=== PATIENT | female | born 1940 | race Caucasian/White ===

== ENCOUNTER 2018-12-14 15:50 | Inpatient (IN) | payer MEDICARE, MEDICAID ==
[~2018-12-14] VITALS: Ht 154.9 cm; Wt 44.1 kg
[2018-12-14] MEDS ORDERED: morphine 4 MG/ML inj SYRINge IV ONE (16:15)
[2018-12-14] MEDS ORDERED: ondansetron/PF 4mg/2ml inj IV ONE (16:15)
[2018-12-14 16:54] LABS: BASOPHILS # (AUTO) 0.1 X10'3 (0-0.2); BASOPHILS % (AUTO) 0.7 % (0-1); EOSINOPHILS # (AUTO) 0.1 X10'3 (0-0.9); EOSINOPHILS % (AUTO) 1.3 % (0-6); HEMATOCRIT 33.4 % (35.0-45.0); HEMOGLOBIN 11.4 g/dl (12.0-16.0); LYMPHOCYTES # (AUTO) 2.3 X10'3 (1.1-4.8); LYMPHOCYTES % (AUTO) 29.2 % (21-51); MEAN CORPUSCULAR HGB CONC 34.2 g/dL (33.0-36.5); MEAN CORPUSCULAR VOLUME 90.6 FL (78-98); MEAN PLATELET VOLUME 7.3 FL (7.4-10.4); MONOCYTES % (AUTO) 13.2 % (2-12); NEUTROPHILS # (AUTO) 4.3 X10'3 (1.8-7.7); NEUTROPHILS % (AUTO) 55.6 % (42-75); PLATELET COUNT 242 X10'3 (140-440); RED BLOOD COUNT 3.69 X10'6 (4.20-5.60); RED CELL DISTRIBUTION WIDTH 13.4 % (11.5-14.5); WHITE BLOOD COUNT 7.8 X10'3 (4.5-11.0)
--- NOTE | 2018-12-14 17:00 | NUR ---
SPOLE TO PA REGARDING OBTAINING URINE
[2018-12-14 17:01] LABS: ALANINE AMINOTRANSFERASE 13 U/L (12-78); ALBUMIN/GLOBULIN RATIO 0.7 (1.1-1.5); ALKALINE PHOSPHATASE 51 IU/L (46-116); ANION GAP 8 (8-16); ASPARTATE AMINO TRANSFERASE 14 U/L (10-37); BILIRUBIN,TOTAL 0.3 MG/DL (0.1-1.0); BLOOD UREA NITROGEN 8 MG/DL (7-18); BUN/CREATININE RATIO 15.4 (6.6-38.0); CALCIUM 8.3 MG/DL (8.5-10.1); CHLORIDE 92 MMOL/L (99-107); CREATININE 0.52 MG/DL (0.40-0.90); GLUCOSE 113 MG/DL (70-104); POTASSIUM 4.1 MMOL/L (3.5-5.1); SODIUM 126 MMOL/L (135-145); TOTAL CARBON DIOXIDE 25.8 MMOL/L (24-32); TOTAL PROTEIN 7.4 G/DL (6.4-8.2); eGFR > 90 ML/MIN
--- NOTE | 2018-12-14 17:18 | NUR ---
to ct scan
[2018-12-14 17:27] LABS: CLARITY,URINE CLEAR (Clear); COLOR,URINE YELLOW (Yellow); GLUCOSE, URINE NEGATIVE (Neg); KETONES,URINE NEGATIVE (Neg); LEUKOCYTE ESTERASE ,URINE NEGATIVE (Neg); NITRITES, URINE NEGATIVE (Neg); OCCULT BLOOD,URINE NEGATIVE (Neg); PROTEIN,URINE NEGATIVE (Neg); UROBILINOGEN,URINE 0.2 E.U/dL (0.2-1.0)
[2018-12-14] MEDS ORDERED: normal saline 1000ML IV soln IVB ONE (17:35)
[2018-12-14 17:43] LABS: UA COLLECTION TYPE STRAIGHT CATH
--- NOTE | 2018-12-14 18:11 | NUR ---
CAREGIVER RONALD MCCAULEY LEFT [phone] CAREGIVER NORA [phone] TO BE CALLED UPON DISCHARGE
--- NOTE | 2018-12-14 18:35 | NUR ---
PATIENT WAS PLACED ON OXYGEN BY RUDY WILSON DUE TO WOB PRIOR TO MORPHINE ADMINISTRATION. NOW, PATIENT RR APPEARS EVEN AND UNLABORED AND PATIENT APPEARS MORE COMFORTABLE, BUT PATIENT STATES THAT HER PAIN IS STILL SEVERE
[2018-12-14] MEDS ORDERED: potassium CL 10mEq/100ml bag 100 ML IV PRN ×2 (20:45)
[2018-12-14] MEDS ORDERED: magnesium 2GM in 50ml NS 50 ML IV PRN (20:45)
[2018-12-14] MEDS ORDERED: magnesium 4gm in 100ml NS 100 ML IV PRN (20:45)
[2018-12-14] MEDS ORDERED: acetaminophen 325mg tablet PO PRN (20:45)
[2018-12-14] MEDS ORDERED: potassium Cl 20 mEq SR tablet PO PRN ×2 (20:45)
[2018-12-14] MEDS ORDERED: magnesium Cl slow-release 64mg tablet PO PRN (20:45)
--- NOTE | 2018-12-14 21:19 | NUR ---
MASSIEL MADDEN CALLED PER MYLES RN: [facility] [phone]
[2018-12-14] MEDS: normal saline 1000ml 1,000 ML IV SCH (21:21)
[2018-12-14] MEDS ORDERED: NIFE30TA95 PO (21:26)
[2018-12-14] MEDS ORDERED: METO-395 PO (21:27)
[2018-12-14] MEDS ORDERED: LISI10TA4 PO (21:27)
[2018-12-14] MEDS ORDERED: ARIP2TAB20 PO (21:28)
[2018-12-14] MEDS ORDERED: DIVA-74 PO (21:28)
--- NOTE | 2018-12-14 21:28 | NUR ---
ATEMPTED TO GIVE REPORT, SBAR NOT DONE VANNESA TAN WORKING ON MED REC
[2018-12-14] MEDS ORDERED: REM30T PO (21:29)
[2018-12-14] MEDS ORDERED: DULO60CA65 PO (21:30)
[2018-12-14 21:45] VITALS: BP 152/80
[2018-12-14] MEDS: morphine 2 MG/ML inj. syringe IV PRN (21:49)
[2018-12-14] MEDS ORDERED: PIL2OS LEFTEYE (22:09)
[2018-12-14] MEDS ORDERED: LORA10TA7 PO (22:09)
[2018-12-14] MEDS ORDERED: XAL0.005OS LEFTEYE (22:09)
[2018-12-14] MEDS ORDERED: ALEN70TA60 PO (22:09)
[2018-12-14] MEDS ORDERED: DOCU100C33 PO (22:09)
[2018-12-14] MEDS ORDERED: LORA0.5T PO (22:09)
[2018-12-15] MEDS: CefTRIAXone/D5W-Rocephin 1gm 50 ML IV SCH ×2 (00:46→23:02)
[2018-12-15] MEDS: ipratropium/albuterol 3ml nebule NEB SCH ×6 (03:08→23:10)
[2018-12-15] MEDS ORDERED: non-formulary drug (Alendronate Sodium* (Fosamax*) 1 TABLET) PO SCH (05:45)
[2018-12-15 06:00] VITALS: BP 212/106
--- NOTE | 2018-12-15 06:18 | NUR ---
Patient in room ORTHO 4009. I have received report from and had the opportunity to ask questions BRITNEY Judd.
[2018-12-15 06:41] LABS: BASOPHILS % (AUTO) 0.4 % (0-1); EOSINOPHILS # (AUTO) 0.1 X10'3 (0-0.9); EOSINOPHILS % (AUTO) 1.7 % (0-6); HEMATOCRIT 34.1 % (35.0-45.0); HEMOGLOBIN 11.6 g/dl (12.0-16.0); LYMPHOCYTES # (AUTO) 1.6 X10'3 (1.1-4.8); LYMPHOCYTES % (AUTO) 22.7 % (21-51); MEAN CORPUSCULAR HEMOGLOBIN 31.6 PG (27.0-31.0); MEAN CORPUSCULAR VOLUME 92.9 FL (78-98); MEAN PLATELET VOLUME 7.8 FL (7.4-10.4); MONOCYTES # (AUTO) 0.7 X10'3 (0-0.9); MONOCYTES % (AUTO) 10.7 % (2-12); NEUTROPHILS # (AUTO) 4.5 X10'3 (1.8-7.7); NEUTROPHILS % (AUTO) 64.5 % (42-75); PLATELET COUNT 240 X10'3 (140-440); RED BLOOD COUNT 3.67 X10'6 (4.20-5.60); RED CELL DISTRIBUTION WIDTH 13.2 % (11.5-14.5); WHITE BLOOD COUNT 6.9 X10'3 (4.5-11.0)
[2018-12-15 06:55] LABS: ANION GAP 10 (8-16); BLOOD UREA NITROGEN 8 MG/DL (7-18); BUN/CREATININE RATIO 11.8 (6.6-38.0); CALCIUM 8.5 MG/DL (8.5-10.1); CHLORIDE 95 MMOL/L (99-107); CREATININE 0.68 MG/DL (0.40-0.90); GLUCOSE 93 MG/DL (70-104); MAGNESIUM 1.9 MG/DL (1.5-2.4); POTASSIUM 4.2 MMOL/L (3.5-5.1); SODIUM 133 MMOL/L (135-145); TOTAL CARBON DIOXIDE 27.8 MMOL/L (24-32); TROPONIN I < 0.04 NG/ML (0.0-0.05); eGFR 84 ML/MIN
[2018-12-15] MEDS: K and/or MAG REPLACEMENT MC SCH (08:00)
[2018-12-15] MEDS: metoprolol succinate 25mg (24-HOUR) SR. Tablet PO SCH ×2 (08:02→19:59)
[2018-12-15] MEDS: loratadine 10mg tablet PO SCH (08:02)
[2018-12-15] MEDS: lisinopril 10 MG tablet PO SCH (08:02)
[2018-12-15] MEDS: NIFEdipine XL 30mg tablet PO SCH (08:02)
[2018-12-15] MEDS: docusate sod 100mg capsule PO SCH ×2 (08:03→19:59)
[2018-12-15] MEDS: duloxetine 30mg CAPSULE.DR PO SCH (08:03)
[2018-12-15] MEDS: dextrose 5%-normal saline 1,000 ML IV SCH (08:05)
[2018-12-15] MEDS: morphine 2 MG/ML inj. syringe IV PRN ×2 (08:05→15:35)
[2018-12-15] MEDS: azithromycin/NS 500mg/250ml 250 ML IV SCH (08:06)
[2018-12-15] MEDS: pilocarpine 2% ophthalmic drops 15ml LEFTEYE SCH ×2 (08:06→19:59)
[2018-12-15] MEDS: divalproex sodium 250mg tablet PO SCH ×2 (08:07→21:21)
[2018-12-15] MEDS: HYDROcodone/acetaminophen 5mg/325mg tablet PO PRN ×2 (08:20→12:49)
[2018-12-15 10:00] VITALS: BP 115/78
[2018-12-15 18:00] VITALS: BP 133/85
--- NOTE | 2018-12-15 18:53 | NUR ---
Patient in room ORTHO 4009. I have received report from BRITNEY GANDHI and had the opportunity to ask questions and assume patient care. Addendum: 12/15/18 at 1853 by Ginger Hamilton RN Amended: Links added.
[2018-12-15] MEDS: lactobacillus rhamnosus 10,000 MMU CELLS/CAPSULE PO SCH (19:59)
[2018-12-15 21:00] VITALS: BP 185/92
[2018-12-15] MEDS: latanoprost 0.005% 2.5ml ophthalmic drops LEFTEYE SCH (21:21)
[2018-12-15] MEDS: mirtazapine 15mg tablet PO SCH (21:21)
[2018-12-16] MEDS: ipratropium/albuterol 3ml nebule NEB SCH ×6 (03:00→22:53)
[2018-12-16 06:00] VITALS: BP 185/82
--- NOTE | 2018-12-16 06:15 | NUR ---
Patient in room ORTHO 4009. I have received report from and had the opportunity to ask questions and assume patient care BRITNEY Miles.
[2018-12-16 06:21] LABS: BASOPHILS # (AUTO) 0.1 X10'3 (0-0.2); BASOPHILS % (AUTO) 0.7 % (0-1); EOSINOPHILS # (AUTO) 0.1 X10'3 (0-0.9); EOSINOPHILS % (AUTO) 1.3 % (0-6); HEMATOCRIT 32.6 % (35.0-45.0); LYMPHOCYTES # (AUTO) 1.7 X10'3 (1.1-4.8); LYMPHOCYTES % (AUTO) 23.1 % (21-51); MEAN CORPUSCULAR HEMOGLOBIN 30.9 PG (27.0-31.0); MEAN CORPUSCULAR HGB CONC 33.9 g/dL (33.0-36.5); MEAN CORPUSCULAR VOLUME 91.2 FL (78-98); MEAN PLATELET VOLUME 7.3 FL (7.4-10.4); MONOCYTES # (AUTO) 0.8 X10'3 (0-0.9); MONOCYTES % (AUTO) 11.1 % (2-12); NEUTROPHILS # (AUTO) 4.7 X10'3 (1.8-7.7); NEUTROPHILS % (AUTO) 63.8 % (42-75); PLATELET COUNT 287 X10'3 (140-440); RED BLOOD COUNT 3.57 X10'6 (4.20-5.60); RED CELL DISTRIBUTION WIDTH 13.5 % (11.5-14.5); WHITE BLOOD COUNT 7.4 X10'3 (4.5-11.0)
--- NOTE | 2018-12-16 06:43 | NUR ---
Problems reprioritized. Patient report given, questions answered & plan of care reviewed with BRITNEY Nettles. Addendum: 12/16/18 at 0643 by Ginger Hamilton RN Amended: Links added.
[2018-12-16 06:50] LABS: ALBUMIN 2.9 G/DL (3.4-5.0); ANION GAP 9 (8-16); BLOOD UREA NITROGEN 8 MG/DL (7-18); CALCIUM 8.7 MG/DL (8.5-10.1); CHLORIDE 95 MMOL/L (99-107); CREATININE 0.57 MG/DL (0.40-0.90); GLUCOSE 114 MG/DL (70-104); MAGNESIUM 1.9 MG/DL (1.5-2.4); POTASSIUM 4.3 MMOL/L (3.5-5.1); SODIUM 132 MMOL/L (135-145); TOTAL CARBON DIOXIDE 28.5 MMOL/L (24-32); eGFR > 90 ML/MIN
[2018-12-16] MEDS: metoprolol succinate 25mg (24-HOUR) SR. Tablet PO SCH ×2 (07:39→20:12)
[2018-12-16] MEDS: duloxetine 30mg CAPSULE.DR PO SCH (07:39)
[2018-12-16] MEDS: lisinopril 10 MG tablet PO SCH (07:40)
[2018-12-16] MEDS: lactobacillus rhamnosus 10,000 MMU CELLS/CAPSULE PO SCH ×2 (07:40→20:11)
[2018-12-16] MEDS: loratadine 10mg tablet PO SCH (07:40)
[2018-12-16] MEDS: docusate sod 100mg capsule PO SCH ×2 (07:41→20:09)
[2018-12-16] MEDS: divalproex sodium 250mg tablet PO SCH ×2 (07:41→20:11)
[2018-12-16] MEDS: pilocarpine 2% ophthalmic drops 15ml LEFTEYE SCH ×2 (07:41→19:48)
[2018-12-16] MEDS: azithromycin/NS 500mg/250ml 250 ML IV SCH (07:41)
[2018-12-16] MEDS: HYDROcodone/acetaminophen 5mg/325mg tablet PO PRN ×2 (07:43→20:11)
[2018-12-16] MEDS: K and/or MAG REPLACEMENT MC SCH (08:00)
[2018-12-16] MEDS: NIFEdipine XL 30mg tablet PO SCH (08:00)
[2018-12-16 10:00] VITALS: BP 140/73
--- NOTE | 2018-12-16 11:06 | NUR ---
Initial: Pt admit s/p fall from WC hx dementia AOx2. PO 50% avg meals decent given age and hx. LBM 12/11; receiving colace. agrees to additional bowel care given constipation. Likely also effecting PO. Receiving electrolyte replacement per protocol. Will continue to monitor. Rec: 1. continue regular diet 2. monitor for ONS needs 3. routine bowel care 4. weekly wts Addendum: 12/16/18 at [address] Amended: Links added.
[2018-12-16] MEDS ORDERED: magnesium hydroxide 30ml (MOM) UD suspension PO PRN (13:50)
[2018-12-16 18:00] VITALS: BP 179/69
[2018-12-16] MEDS ORDERED: mineral oil 133ml enema RC PRN (20:00)
[2018-12-16] MEDS: latanoprost 0.005% 2.5ml ophthalmic drops LEFTEYE SCH (20:09)
[2018-12-16] MEDS: mirtazapine 15mg tablet PO SCH (20:12)
[2018-12-16] MEDS: sennosides/docusate sodium tablet PO SCH (20:12)
[2018-12-16] MEDS: normal saline 1000ml 1,000 ML IV SCH (20:43)
[2018-12-16 22:00] VITALS: BP 176/73
[2018-12-17] MEDS: CefTRIAXone/D5W-Rocephin 1gm 50 ML IV SCH ×2 (01:05→23:57)
[2018-12-17] MEDS: ipratropium/albuterol 3ml nebule NEB SCH ×6 (03:29→23:24)
[2018-12-17 06:00] VITALS: BP 168/73
--- NOTE | 2018-12-17 06:09 | NUR ---
Problems reprioritized. Patient report given, questions answered & plan of care reviewed with BRITNEY PEDERSON.
[2018-12-17 06:10] LABS: BASOPHILS % (AUTO) 0.6 % (0-1); EOSINOPHILS # (AUTO) 0.2 X10'3 (0-0.9); EOSINOPHILS % (AUTO) 3.7 % (0-6); HEMATOCRIT 35.2 % (35.0-45.0); HEMOGLOBIN 11.8 g/dl (12.0-16.0); LYMPHOCYTES # (AUTO) 1.7 X10'3 (1.1-4.8); MEAN CORPUSCULAR HEMOGLOBIN 31.1 PG (27.0-31.0); MEAN CORPUSCULAR HGB CONC 33.7 g/dL (33.0-36.5); MEAN CORPUSCULAR VOLUME 92.3 FL (78-98); MEAN PLATELET VOLUME 7.5 FL (7.4-10.4); MONOCYTES # (AUTO) 0.7 X10'3 (0-0.9); MONOCYTES % (AUTO) 11.5 % (2-12); NEUTROPHILS # (AUTO) 3.4 X10'3 (1.8-7.7); NEUTROPHILS % (AUTO) 56.2 % (42-75); PLATELET COUNT 344 X10'3 (140-440); RED BLOOD COUNT 3.81 X10'6 (4.20-5.60); RED CELL DISTRIBUTION WIDTH 13.5 % (11.5-14.5)
[2018-12-17 06:21] LABS: ANION GAP 8 (8-16); BLOOD UREA NITROGEN 9 MG/DL (7-18); CALCIUM 8.8 MG/DL (8.5-10.1); CHLORIDE 95 MMOL/L (99-107); CREATININE 0.53 MG/DL (0.40-0.90); GLUCOSE 113 MG/DL (70-104); MAGNESIUM 1.9 MG/DL (1.5-2.4); POTASSIUM 4.1 MMOL/L (3.5-5.1); SODIUM 132 MMOL/L (135-145); eGFR > 90 ML/MIN
--- NOTE | 2018-12-17 06:30 | NUR ---
received report from prince chaudhari
[2018-12-17] MEDS: K and/or MAG REPLACEMENT MC SCH (07:00)
[2018-12-17] MEDS: divalproex sodium 250mg tablet PO SCH ×2 (07:13→19:46)
[2018-12-17] MEDS: lisinopril 10 MG tablet PO SCH (07:17)
[2018-12-17] MEDS: metoprolol succinate 25mg (24-HOUR) SR. Tablet PO SCH ×2 (07:21→19:46)
[2018-12-17] MEDS: sennosides/docusate sodium tablet PO SCH ×2 (07:23→19:46)
[2018-12-17] MEDS: NIFEdipine XL 30mg tablet PO SCH (07:23)
[2018-12-17] MEDS: docusate sod 100mg capsule PO SCH ×2 (07:24→19:46)
[2018-12-17] MEDS: lactobacillus rhamnosus 10,000 MMU CELLS/CAPSULE PO SCH ×2 (07:24→19:46)
[2018-12-17] MEDS: loratadine 10mg tablet PO SCH (07:25)
[2018-12-17] MEDS: HYDROcodone/acetaminophen 5mg/325mg tablet PO PRN ×4 (07:27→21:41)
[2018-12-17] MEDS: LORazepam 0.5 MG tablet PO PRN ×2 (07:28→15:37)
[2018-12-17] MEDS: pilocarpine 2% ophthalmic drops 15ml LEFTEYE SCH ×2 (07:30→19:45)
[2018-12-17] MEDS: duloxetine 30mg CAPSULE.DR PO SCH (07:30)
[2018-12-17] MEDS: dextrose 5%-normal saline 1,000 ML IV SCH (07:32)
[2018-12-17] MEDS: azithromycin/NS 500mg/250ml 250 ML IV SCH (07:35)
[2018-12-17 10:00] VITALS: BP 149/67
[2018-12-17 18:00] VITALS: BP 172/97
--- NOTE | 2018-12-17 18:10 | NUR ---
GAVE REPORT TO BRITNEY BERMUDEZ
[2018-12-17] MEDS: mirtazapine 15mg tablet PO SCH (19:46)
[2018-12-17] MEDS: latanoprost 0.005% 2.5ml ophthalmic drops LEFTEYE SCH (19:52)
[2018-12-17 22:00] VITALS: BP 165/65
[2018-12-18] MEDS: ipratropium/albuterol 3ml nebule NEB SCH ×5 (03:59→19:06)
[2018-12-18] MEDS: HYDROcodone/acetaminophen 5mg/325mg tablet PO PRN ×4 (06:02→19:43)
[2018-12-18 06:10] VITALS: BP 167/100
--- NOTE | 2018-12-18 06:28 | NUR ---
Problems reprioritized. Patient report given, questions answered & plan of care reviewed with BRITNEY KIM.
--- NOTE | 2018-12-18 06:30 | NUR ---
I HAVE RECEIVED PATIENT REPORT FROM LARA TAN
[2018-12-18 06:37] LABS: BASOPHILS % (AUTO) 0.6 % (0-1); EOSINOPHILS # (AUTO) 0.2 X10'3 (0-0.9); EOSINOPHILS % (AUTO) 2.7 % (0-6); HEMOGLOBIN 11.8 g/dl (12.0-16.0); LYMPHOCYTES # (AUTO) 1.4 X10'3 (1.1-4.8); LYMPHOCYTES % (AUTO) 18.9 % (21-51); MEAN CORPUSCULAR HEMOGLOBIN 31.2 PG (27.0-31.0); MEAN CORPUSCULAR HGB CONC 33.8 g/dL (33.0-36.5); MEAN CORPUSCULAR VOLUME 92.2 FL (78-98); MEAN PLATELET VOLUME 7.5 FL (7.4-10.4); MONOCYTES # (AUTO) 0.7 X10'3 (0-0.9); MONOCYTES % (AUTO) 8.9 % (2-12); NEUTROPHILS # (AUTO) 5.2 X10'3 (1.8-7.7); NEUTROPHILS % (AUTO) 68.9 % (42-75); PLATELET COUNT 409 X10'3 (140-440); RED BLOOD COUNT 3.79 X10'6 (4.20-5.60); RED CELL DISTRIBUTION WIDTH 13.7 % (11.5-14.5); WHITE BLOOD COUNT 7.5 X10'3 (4.5-11.0)
[2018-12-18 07:04] LABS: ANION GAP 9 (8-16); BLOOD UREA NITROGEN 8 MG/DL (7-18); CHLORIDE 93 MMOL/L (99-107); CREATININE 0.47 MG/DL (0.40-0.90); GLUCOSE 125 MG/DL (70-104); MAGNESIUM 1.9 MG/DL (1.5-2.4); POTASSIUM 3.8 MMOL/L (3.5-5.1); SODIUM 129 MMOL/L (135-145); TOTAL CARBON DIOXIDE 26.8 MMOL/L (24-32); eGFR > 90 ML/MIN
[2018-12-18] MEDS: K and/or MAG REPLACEMENT MC SCH (08:00)
[2018-12-18] MEDS: lactobacillus rhamnosus 10,000 MMU CELLS/CAPSULE PO SCH ×2 (08:42→19:40)
[2018-12-18] MEDS: sennosides/docusate sodium tablet PO SCH ×2 (08:42→19:40)
[2018-12-18] MEDS: duloxetine 30mg CAPSULE.DR PO SCH (08:44)
[2018-12-18] MEDS: NIFEdipine XL 30mg tablet PO SCH (08:44)
[2018-12-18] MEDS: metoprolol succinate 25mg (24-HOUR) SR. Tablet PO SCH ×2 (08:45→19:42)
[2018-12-18] MEDS: divalproex sodium 250mg tablet PO SCH ×2 (08:45→19:40)
[2018-12-18] MEDS: azithromycin 250mg tablet PO SCH (08:45)
[2018-12-18] MEDS: docusate sod 100mg capsule PO SCH ×2 (08:45→19:39)
[2018-12-18] MEDS: lisinopril 10 MG tablet PO SCH (08:45)
[2018-12-18] MEDS: loratadine 10mg tablet PO SCH (08:45)
[2018-12-18] MEDS: pilocarpine 2% ophthalmic drops 15ml LEFTEYE SCH ×2 (08:46→19:39)
[2018-12-18] MEDS: morphine 2 MG/ML inj. syringe IV PRN (08:46)
[2018-12-18 10:00] VITALS: BP 175/87
--- NOTE | 2018-12-18 16:33 | NUR ---
reassessment: Pt PO 25% avg meals past 5 days w/ dementia. AOx2. LBM 12/17 receiving colace and senna routinely. Ensure Enlive TIDWM added for additional protein/kcal needs; pending MD verification prior to sending on trays. Na 129 receiving DEX/NS. Will continue to monitor. Rec: 1. continue regular diet 2. ensure enlive TIDWM; pending MD verification prior to sending on trays 3. routine bowel care 4. weekly wts Addendum: 12/18/18 at [address] Amended: Links added.
[2018-12-18 18:00] VITALS: BP 171/94
--- NOTE | 2018-12-18 18:30 | NUR ---
Patient report given to Zeina hood RN
[2018-12-18] MEDS: mirtazapine 15mg tablet PO SCH (19:41)
[2018-12-18] MEDS: latanoprost 0.005% 2.5ml ophthalmic drops LEFTEYE SCH (19:43)
[2018-12-18 21:00] VITALS: BP 139/62
[2018-12-18] MEDS: CefTRIAXone/D5W-Rocephin 1gm 50 ML IV SCH (23:05)
[2018-12-19] MEDS: ipratropium/albuterol 3ml nebule NEB SCH ×7 (00:01→23:00)
--- NOTE | 2018-12-19 01:18 | NUR ---
reviewed and agree with SRN assessment
[2018-12-19 06:10] VITALS: BP 171/96
--- NOTE | 2018-12-19 06:31 | NUR ---
Problems reprioritized. Patient report given, questions answered & plan of care reviewed with BRITNEY Menard.
[2018-12-19 06:50] LABS: BASOPHILS % (AUTO) 0.6 % (0-1); EOSINOPHILS # (AUTO) 0.3 X10'3 (0-0.9); EOSINOPHILS % (AUTO) 3.9 % (0-6); HEMATOCRIT 35.3 % (35.0-45.0); HEMOGLOBIN 12.2 g/dl (12.0-16.0); LYMPHOCYTES # (AUTO) 1.9 X10'3 (1.1-4.8); LYMPHOCYTES % (AUTO) 22.8 % (21-51); MEAN CORPUSCULAR HEMOGLOBIN 31.6 PG (27.0-31.0); MEAN CORPUSCULAR HGB CONC 34.5 g/dL (33.0-36.5); MEAN CORPUSCULAR VOLUME 91.7 FL (78-98); MEAN PLATELET VOLUME 7.3 FL (7.4-10.4); MONOCYTES # (AUTO) 0.8 X10'3 (0-0.9); MONOCYTES % (AUTO) 10.2 % (2-12); NEUTROPHILS # (AUTO) 5.1 X10'3 (1.8-7.7); NEUTROPHILS % (AUTO) 62.5 % (42-75); PLATELET COUNT 436 X10'3 (140-440); RED BLOOD COUNT 3.85 X10'6 (4.20-5.60); RED CELL DISTRIBUTION WIDTH 13.6 % (11.5-14.5); WHITE BLOOD COUNT 8.1 X10'3 (4.5-11.0)
[2018-12-19 07:06] LABS: ALBUMIN 2.9 G/DL (3.4-5.0); ANION GAP 9 (8-16); BLOOD UREA NITROGEN 10 MG/DL (7-18); BUN/CREATININE RATIO 16.7 (6.6-38.0); CHLORIDE 92 MMOL/L (99-107); GLUCOSE 109 MG/DL (70-104); SODIUM 128 MMOL/L (135-145); TOTAL CARBON DIOXIDE 26.9 MMOL/L (24-32); eGFR > 90 ML/MIN
[2018-12-19] MEDS: metoprolol succinate 25mg (24-HOUR) SR. Tablet PO SCH ×2 (07:21→20:36)
[2018-12-19] MEDS: divalproex sodium 250mg tablet PO SCH ×2 (07:21→20:36)
[2018-12-19] MEDS: lisinopril 10 MG tablet PO SCH (07:21)
[2018-12-19] MEDS: duloxetine 30mg CAPSULE.DR PO SCH (07:22)
[2018-12-19] MEDS: HYDROcodone/acetaminophen 5mg/325mg tablet PO PRN ×3 (07:22→19:24)
[2018-12-19] MEDS: azithromycin 250mg tablet PO SCH (07:22)
[2018-12-19] MEDS: lactobacillus rhamnosus 10,000 MMU CELLS/CAPSULE PO SCH ×2 (07:23→20:37)
[2018-12-19] MEDS: sennosides/docusate sodium tablet PO SCH ×2 (07:23→20:37)
[2018-12-19] MEDS: NIFEdipine XL 30mg tablet PO SCH (07:23)
[2018-12-19] MEDS: loratadine 10mg tablet PO SCH (07:23)
[2018-12-19] MEDS: docusate sod 100mg capsule PO SCH ×2 (07:23→20:37)
[2018-12-19] MEDS: pilocarpine 2% ophthalmic drops 15ml LEFTEYE SCH ×2 (07:24→20:38)
[2018-12-19] MEDS: K and/or MAG REPLACEMENT MC SCH (08:00)
[2018-12-19 10:00] VITALS: BP 159/76
--- NOTE | 2018-12-19 10:00 | NUR ---
Dr. Smith paged about sodium of 128, waiting for call back
[2018-12-19] MEDS: dextrose 5%-normal saline 1,000 ML IV SCH (11:03)
[2018-12-19 18:00] VITALS: BP 169/79
--- NOTE | 2018-12-19 18:51 | NUR ---
Patient report given Zeina TAN
[2018-12-19] MEDS: latanoprost 0.005% 2.5ml ophthalmic drops LEFTEYE SCH (20:36)
[2018-12-19] MEDS: mirtazapine 15mg tablet PO SCH (20:36)
[2018-12-19 22:00] VITALS: BP 136/52
[2018-12-19] MEDS: CefTRIAXone/D5W-Rocephin 1gm 50 ML IV SCH (22:51)
[2018-12-20] MEDS: dextrose 5%-normal saline 1,000 ML IV SCH ×2 (00:15→09:35)
--- NOTE | 2018-12-20 02:51 | NUR ---
Reviewed and agree with SRN assessment.
[2018-12-20] MEDS: ipratropium/albuterol 3ml nebule NEB SCH ×3 (03:00→10:52)
[2018-12-20 06:10] VITALS: BP 181/70
--- NOTE | 2018-12-20 06:10 | NUR ---
Problems reprioritized. Patient report given, questions answered & plan of care reviewed with BRITNEY Menard.
[2018-12-20] MEDS: K and/or MAG REPLACEMENT MC SCH (08:00)
[2018-12-20] MEDS: NIFEdipine XL 30mg tablet PO SCH (08:49)
[2018-12-20] MEDS: loratadine 10mg tablet PO SCH (08:49)
[2018-12-20] MEDS: lisinopril 10 MG tablet PO SCH (08:50)
[2018-12-20] MEDS: lactobacillus rhamnosus 10,000 MMU CELLS/CAPSULE PO SCH (08:50)
[2018-12-20] MEDS: duloxetine 30mg CAPSULE.DR PO SCH (08:50)
[2018-12-20] MEDS: azithromycin 250mg tablet PO SCH (08:50)
[2018-12-20] MEDS: pilocarpine 2% ophthalmic drops 15ml LEFTEYE SCH (08:51)
[2018-12-20] MEDS: divalproex sodium 250mg tablet PO SCH (08:51)
[2018-12-20] MEDS: metoprolol succinate 25mg (24-HOUR) SR. Tablet PO SCH (08:51)
[2018-12-20] MEDS: sennosides/docusate sodium tablet PO SCH (08:51)
[2018-12-20] MEDS: HYDROcodone/acetaminophen 5mg/325mg tablet PO PRN ×2 (08:51→13:16)
[2018-12-20] MEDS: docusate sod 100mg capsule PO SCH (08:51)
[2018-12-20 10:00] VITALS: BP 180/98
--- NOTE | 2018-12-20 11:00 | NUR ---
I let Dr. Villasenor know about high BP 180/98, he said it was okay, I had just gave the patient BP medications, also asked about a sodium re-draw but he said it wasn't needed at this time.
[2018-12-20] MEDS ORDERED: HYDR-4353 PO (11:18)
== END 2018-12-20 14:00 | disposition home health service (06) | DRG 543 ==
LOC: ER 15:52 → ORTHO 4S 21:56
PROVIDERS: ADMIT Internal Medicine; ATTEND Family Medicine
DX: M48.56XA Collapsed vertebra, not elsewhere classified, lumbar region, initial encounter for fracture (principal); E87.1 Hypo-osmolality and hyponatremia; Z68.1 Body mass index [BMI] 19.9 or less, adult; D64.9 Anemia, unspecified; F32.9 Major depressive disorder, single episode, unspecified; G30.9 Alzheimer's disease, unspecified; F02.80 Dementia in other diseases classified elsewhere, unspecified severity, without behavioral disturbance, psychotic disturbance, mood disturbance, and anxiety; I10 Essential (primary) hypertension; M81.0 Age-related osteoporosis without current pathological fracture; W05.0XXA Fall from non-moving wheelchair, initial encounter; Y93.89 Activity, other specified; Z79.899 Other long term (current) drug therapy; Y92.89 Other specified places as the place of occurrence of the external cause; Y99.8 Other external cause status
CPT/HCPCS: 36415; 71045; 72128; 72131; 80048; 80053; 81003; 83735; 83880; 84484; 85025; 87081; 93005; 94640; 94760; 96361; 96374; 96375; 97110; 97161; 97530; 97760; 99285; G0378; J0456; J0696; J2270; J2405; J7030; J7042

== ENCOUNTER 2018-12-24 18:34 | Emergency (ER) | payer MEDICARE, MEDICAID ==
[~2018-12-24] VITALS: Ht 154.9 cm; Wt 96.5 kg
[~2018-12-24 18:34] MED LIST: ALEN70TA60 PO; ARIP2TAB20 PO; DIVA-74 PO; DOCU100C33 PO; DULO60CA65 PO; HYDR-4353 PO; LISI10TA4 PO; LORA0.5T PO; LORA10TA7 PO; METO-395 PO; NIFE30TA95 PO; PIL2OS LEFTEYE; REM30T PO; XAL0.005OS LEFTEYE
[2018-12-24 19:26] LABS: BASOPHILS # (AUTO) 0.1 X10'3 (0-0.2); BASOPHILS % (AUTO) 0.7 % (0-1); EOSINOPHILS # (AUTO) 0.2 X10'3 (0-0.9); EOSINOPHILS % (AUTO) 2.1 % (0-6); HEMATOCRIT 39.5 % (35.0-45.0); HEMOGLOBIN 13.4 g/dl (12.0-16.0); LYMPHOCYTES # (AUTO) 2.3 X10'3 (1.1-4.8); LYMPHOCYTES % (AUTO) 27.4 % (21-51); MEAN CORPUSCULAR VOLUME 91.3 FL (78-98); MEAN PLATELET VOLUME 6.9 FL (7.4-10.4); MONOCYTES # (AUTO) 0.8 X10'3 (0-0.9); MONOCYTES % (AUTO) 9.9 % (2-12); NEUTROPHILS % (AUTO) 59.9 % (42-75); PLATELET COUNT 569 X10'3 (140-440); RED BLOOD COUNT 4.32 X10'6 (4.20-5.60); RED CELL DISTRIBUTION WIDTH 13.7 % (11.5-14.5); WHITE BLOOD COUNT 8.3 X10'3 (4.5-11.0)
[2018-12-24 19:40] LABS: PARTIAL THROMBOPLASTIN TIME 29 SECONDS (22-32)
[2018-12-24 19:44] LABS: ALANINE AMINOTRANSFERASE 13 U/L (12-78); ALBUMIN 3.3 G/DL (3.4-5.0); ALBUMIN/GLOBULIN RATIO 0.7 (1.1-1.5); ALKALINE PHOSPHATASE 98 IU/L (46-116); ANION GAP 9 (8-16); ASPARTATE AMINO TRANSFERASE 14 U/L (10-37); BILIRUBIN,TOTAL 0.4 MG/DL (0.1-1.0); BLOOD UREA NITROGEN 11 MG/DL (7-18); BUN/CREATININE RATIO 17.5 (6.6-38.0); CALCIUM 9.3 MG/DL (8.5-10.1); CHLORIDE 94 MMOL/L (99-107); CREATININE 0.63 MG/DL (0.40-0.90); GLUCOSE 104 MG/DL (70-104); POTASSIUM 4.3 MMOL/L (3.5-5.1); SODIUM 130 MMOL/L (135-145); TOTAL CARBON DIOXIDE 26.8 MMOL/L (24-32); TOTAL PROTEIN 8.1 G/DL (6.4-8.2); eGFR > 90 ML/MIN
[2018-12-24 21:19] VITALS: BP 123/68
== END 2018-12-24 21:21 | disposition home or self-care (01) ==
LOC: ER 18:35
DX: R06.00 Dyspnea, unspecified (principal); R06.02 Shortness of breath; F03.90 Unspecified dementia, unspecified severity, without behavioral disturbance, psychotic disturbance, mood disturbance, and anxiety; I10 Essential (primary) hypertension; G89.29 Other chronic pain; Z79.899 Other long term (current) drug therapy
CPT/HCPCS: 71045; 80053; 83605; 84484; 85025; 85610; 85730; 87040; 93005; 99284

== ENCOUNTER 2019-05-15 11:38 | Inpatient (IN) | payer MEDICARE, MEDICAID ==
[~2019-05-15] VITALS: Ht 147.3 cm; Wt 44.0 kg
[~2019-05-15 11:38] MED LIST changes: -HYDR-4353 PO
[2019-05-15] MEDS ORDERED: dextrose 50%-water 50ml dispensing syringe IV ONE ×2 (11:53→12:50)
--- NOTE | 2019-05-15 12:04 | NUR ---
Pt given 4 PO Sweeties. IV access being attempted.
[2019-05-15] MEDS ORDERED: normal saline 1000ML IV soln IVB ONE (12:50)
[2019-05-15 13:10] LABS: BASOPHILS # (AUTO) 0.1 X10'3 (0-0.2); BASOPHILS % (AUTO) 0.7 % (0-1); EOSINOPHILS # (AUTO) 0.2 X10'3 (0-0.9); HEMATOCRIT 40.9 % (35.0-45.0); HEMOGLOBIN 13.6 g/dl (12.0-16.0); LYMPHOCYTES # (AUTO) 3.2 X10'3 (1.1-4.8); LYMPHOCYTES % (AUTO) 38.1 % (21-51); MEAN CORPUSCULAR HEMOGLOBIN 30.8 PG (27.0-31.0); MEAN CORPUSCULAR HGB CONC 33.3 g/dL (33.0-36.5); MEAN CORPUSCULAR VOLUME 92.5 FL (78-98); MEAN PLATELET VOLUME 8.7 FL (7.4-10.4); MONOCYTES # (AUTO) 0.7 X10'3 (0-0.9); MONOCYTES % (AUTO) 8.6 % (2-12); NEUTROPHILS # (AUTO) 4.3 X10'3 (1.8-7.7); NEUTROPHILS % (AUTO) 50.6 % (42-75); PLATELET COUNT 239 X10'3 (140-440); RED BLOOD COUNT 4.42 X10'6 (4.20-5.60); RED CELL DISTRIBUTION WIDTH 12.8 % (11.5-14.5); WHITE BLOOD COUNT 8.5 X10'3 (4.5-11.0)
[2019-05-15 13:19] LABS: PARTIAL THROMBOPLASTIN TIME 31 SECONDS (22-32)
[2019-05-15 13:21] LABS: AMMONIA < 10 UMOL/L (11-32)
[2019-05-15 13:27] LABS: LACTIC SEPSIS 1.2 MMOL/L (0.4-2.0)
[2019-05-15] MEDS ORDERED: metoprolol tartrate 1mg/ml inj IV ONE (13:55)
[2019-05-15] MEDS: metoprolol tartrate 1mg/ml inj IV SCH ×2 (14:58→15:20)
[2019-05-15 15:34] LABS: CLARITY,URINE CLEAR (Clear); COLOR,URINE YELLOW (Yellow); GLUCOSE, URINE 500 mg/dl (Neg); KETONES,URINE 15 mg/dl (Neg); LEUKOCYTE ESTERASE ,URINE NEGATIVE (Neg); NITRITES, URINE NEGATIVE (Neg); OCCULT BLOOD,URINE NEGATIVE (Neg); PROTEIN,URINE NEGATIVE (Neg); UROBILINOGEN,URINE 0.2 E.U/dL (0.2-1.0)
[2019-05-15 15:39] LABS: ALANINE AMINOTRANSFERASE 13 U/L (12-78); ALBUMIN 3.4 G/DL (3.4-5.0); ALBUMIN/GLOBULIN RATIO 0.7 (1.1-1.5); ALKALINE PHOSPHATASE 79 IU/L (46-116); ANION GAP 11 (8-16); ASPARTATE AMINO TRANSFERASE 20 U/L (10-37); BILIRUBIN,TOTAL 0.5 MG/DL (0.1-1.0); BLOOD UREA NITROGEN 20 MG/DL (7-18); BUN/CREATININE RATIO 23.5 (6.6-38.0); CALCIUM 9.2 MG/DL (8.5-10.1); CHLORIDE 98 MMOL/L (99-107); CREATININE 0.85 MG/DL (0.40-0.90); GLUCOSE 72 MG/DL (70-104); POTASSIUM 4.6 MMOL/L (3.5-5.1); SODIUM 136 MMOL/L (135-145); TOTAL CARBON DIOXIDE 27.3 MMOL/L (24-32); TOTAL PROTEIN 8.4 G/DL (6.4-8.2); eGFR 65 ML/MIN
[2019-05-15 15:40] LABS: UA COLLECTION TYPE STRAIGHT CATH
[2019-05-15] MEDS ORDERED: TRAM50TA2 PO (16:51)
[2019-05-15] MEDS ORDERED: POLY17PO10 PO (16:55)
[2019-05-15] MEDS ORDERED: KETO15CR2 TOP (17:04)
[2019-05-15] MEDS ORDERED: MIRT15TA PO (17:05)
[2019-05-15] MEDS ORDERED: morphine 2 MG/ML inj. syringe IV PRN (17:15)
[2019-05-15] MEDS ORDERED: magnesium 2GM in 50ml NS 50 ML IV PRN (17:15)
[2019-05-15] MEDS ORDERED: ondansetron/PF 4mg/2ml inj IV PRN (17:15)
[2019-05-15] MEDS ORDERED: magnesium Cl slow-release 64mg tablet PO PRN (17:15)
[2019-05-15] MEDS ORDERED: magnesium 4gm in 100ml NS 100 ML IV PRN (17:15)
[2019-05-15] MEDS ORDERED: potassium Cl 20 mEq SR tablet PO PRN ×2 (17:15)
[2019-05-15] MEDS ORDERED: potassium CL 10mEq/100ml bag 100 ML IV PRN ×2 (17:15)
[2019-05-15] MEDS ORDERED: acetaminophen 325mg tablet PO PRN ×2 (17:15)
[2019-05-15] MEDS: normal saline 1000ml 1,000 ML IV SCH (19:46)
[2019-05-15 19:48] VITALS: BP 213/107
[2019-05-15] MEDS: K and/or MAG REPLACEMENT MC SCH (19:56)
--- NOTE | 2019-05-15 20:00 | NUR ---
Notified MD via [facility] that patient coming to floor with SBP greater than 200. ER nurse stated that MD is aware. Requested PRN for high BP.
[2019-05-15] MEDS: traMADol 50MG tablet PO SCH (20:01)
[2019-05-15] MEDS: docusate sod 100mg capsule PO SCH (20:01)
[2019-05-15] MEDS: heparin, porcine 5000 units/ml vial SQ SCH (20:03)
[2019-05-15] MEDS: metoprolol tartrate 25mg tablet PO SCH (20:03)
[2019-05-15] MEDS: mirtazapine 15mg tablet PO SCH (20:05)
[2019-05-15] MEDS: lisinopril 20mg tablet PO SCH (20:05)
[2019-05-15] MEDS: divalproex sodium 250mg tablet PO SCH (21:30)
[2019-05-15] MEDS: latanoprost 0.005% 2.5ml ophthalmic drops LEFTEYE SCH (21:30)
[2019-05-15] MEDS: pilocarpine 2% ophthalmic drops 15ml LEFTEYE SCH (21:30)
[2019-05-15 22:00] VITALS: BP 208/108
--- NOTE | 2019-05-15 22:54 | NUR ---
called and got her voicemail. left a message to notify that SBP still very high even after medications were administered at 1999.
[2019-05-15] MEDS ORDERED: amLODIPine 5mg tablet PO ONE (23:05)
[2019-05-15] MEDS ORDERED: cloNIDine 0.1 mg tablet PO ONE (23:05)
--- NOTE | 2019-05-15 23:15 | NUR ---
Dr Smith called back. new orders for clonidine and norvasc and to call her back after 1 hour
[2019-05-16 00:39] VITALS: BP 176/72
[2019-05-16] MEDS ORDERED: cloNIDine 0.1 mg tablet PO ONE (00:40)
--- NOTE | 2019-05-16 00:40 | NUR ---
vik VALDIVIA with new BP 176/72. She wants me to give 1 more dose of Clonidine
[2019-05-16 00:41] VITALS: BP 200/99
[2019-05-16 06:00] VITALS: BP 116/50
--- NOTE | 2019-05-16 06:30 | NUR ---
Problems reprioritized. Patient report given, questions answered & plan of care reviewed with BRITNEY Garcia.
[2019-05-16 06:39] LABS: BASOPHILS % (AUTO) 0.4 % (0-1); EOSINOPHILS # (AUTO) 0.1 X10'3 (0-0.9); EOSINOPHILS % (AUTO) 1.4 % (0-6); HEMATOCRIT 37.6 % (35.0-45.0); HEMOGLOBIN 12.8 g/dl (12.0-16.0); LYMPHOCYTES # (AUTO) 2.1 X10'3 (1.1-4.8); LYMPHOCYTES % (AUTO) 27.8 % (21-51); MEAN CORPUSCULAR HEMOGLOBIN 31.9 PG (27.0-31.0); MEAN CORPUSCULAR HGB CONC 34.1 g/dL (33.0-36.5); MEAN CORPUSCULAR VOLUME 93.5 FL (78-98); MEAN PLATELET VOLUME 8.7 FL (7.4-10.4); MONOCYTES # (AUTO) 0.7 X10'3 (0-0.9); MONOCYTES % (AUTO) 8.8 % (2-12); NEUTROPHILS # (AUTO) 4.7 X10'3 (1.8-7.7); NEUTROPHILS % (AUTO) 61.6 % (42-75); PLATELET COUNT 218 X10'3 (140-440); RED BLOOD COUNT 4.02 X10'6 (4.20-5.60); RED CELL DISTRIBUTION WIDTH 13.2 % (11.5-14.5); WHITE BLOOD COUNT 7.7 X10'3 (4.5-11.0)
[2019-05-16 06:46] LABS: ALANINE AMINOTRANSFERASE 11 U/L (12-78); ALBUMIN 2.7 G/DL (3.4-5.0); ALBUMIN/GLOBULIN RATIO 0.6 (1.1-1.5); ALKALINE PHOSPHATASE 65 IU/L (46-116); ANION GAP 9 (8-16); BILIRUBIN,TOTAL 0.4 MG/DL (0.1-1.0); BLOOD UREA NITROGEN 16 MG/DL (7-18); BUN/CREATININE RATIO 21.6 (6.6-38.0); CALCIUM 8.4 MG/DL (8.5-10.1); CHLORIDE 101 MMOL/L (99-107); CREATININE 0.74 MG/DL (0.40-0.90); GLUCOSE 92 MG/DL (70-104); MAGNESIUM 1.8 MG/DL (1.5-2.4); SODIUM 136 MMOL/L (135-145); TOTAL CARBON DIOXIDE 26.3 MMOL/L (24-32); TOTAL PROTEIN 7.2 G/DL (6.4-8.2); eGFR 76 ML/MIN
[2019-05-16 06:50] LABS: ASPARTATE AMINO TRANSFERASE 24 U/L (10-37); POTASSIUM 4.4 MMOL/L (3.5-5.1)
[2019-05-16] MEDS: docusate sod 100mg capsule PO SCH ×2 (07:27→19:45)
[2019-05-16] MEDS: divalproex sodium 250mg tablet PO SCH ×2 (07:28→19:46)
[2019-05-16] MEDS: traMADol 50MG tablet PO SCH ×2 (07:29→19:45)
[2019-05-16] MEDS: lisinopril 20mg tablet PO SCH (07:29)
[2019-05-16] MEDS: NIFEdipine XL 30mg tablet PO SCH (07:29)
[2019-05-16] MEDS: metoprolol tartrate 25mg tablet PO SCH ×2 (07:30→19:46)
[2019-05-16] MEDS: heparin, porcine 5000 units/ml vial SQ SCH ×2 (07:30→19:44)
[2019-05-16] MEDS: pilocarpine 2% ophthalmic drops 15ml LEFTEYE SCH ×2 (07:30→19:43)
[2019-05-16] MEDS: K and/or MAG REPLACEMENT MC SCH ×2 (08:00→19:43)
[2019-05-16] MEDS ORDERED: lisinopril 20mg tablet PO SCH (08:00)
[2019-05-16] MEDS ORDERED: duloxetine 30mg CAPSULE.DR PO SCH (08:00)
[2019-05-16 10:00] VITALS: BP 140/69
[2019-05-16] MEDS: HYDROcodone/acetaminophen 5mg/325mg tablet PO PRN ×2 (10:10→20:55)
[2019-05-16] MEDS: normal saline 1000ml 1,000 ML IV SCH (13:13)
[2019-05-16] MEDS ORDERED: iohexol 300mg/ml 100ml inj. ONE (16:46)
[2019-05-16 18:00] VITALS: BP 170/81
[2019-05-16] MEDS ORDERED: CefTRIAXone 2gm/D5W 50ml 50 ML IV SCH (19:18)
[2019-05-16] MEDS: latanoprost 0.005% 2.5ml ophthalmic drops LEFTEYE SCH (19:43)
[2019-05-16] MEDS: mirtazapine 15mg tablet PO SCH (19:45)
[2019-05-16 22:00] VITALS: BP 165/92
--- NOTE | 2019-05-17 00:48 | NUR ---
Reviewed and agree with SRN assessment findings.
[2019-05-17 06:00] VITALS: BP 181/88
--- NOTE | 2019-05-17 06:13 | NUR ---
Problems reprioritized. Patient report given, questions answered & plan of care reviewed with BRITNEY Lovell.
[2019-05-17 08:00] LABS: BASOPHILS % (AUTO) 0.7 % (0-1); EOSINOPHILS # (AUTO) 0.2 X10'3 (0-0.9); EOSINOPHILS % (AUTO) 2.8 % (0-6); HEMATOCRIT 41.2 % (35.0-45.0); HEMOGLOBIN 13.9 g/dl (12.0-16.0); LYMPHOCYTES # (AUTO) 2.1 X10'3 (1.1-4.8); LYMPHOCYTES % (AUTO) 31.7 % (21-51); MEAN CORPUSCULAR HEMOGLOBIN 31.2 PG (27.0-31.0); MEAN CORPUSCULAR HGB CONC 33.6 g/dL (33.0-36.5); MEAN CORPUSCULAR VOLUME 92.8 FL (78-98); MONOCYTES # (AUTO) 0.6 X10'3 (0-0.9); MONOCYTES % (AUTO) 9.5 % (2-12); NEUTROPHILS # (AUTO) 3.6 X10'3 (1.8-7.7); NEUTROPHILS % (AUTO) 55.3 % (42-75); PLATELET COUNT 174 X10'3 (140-440); RED BLOOD COUNT 4.44 X10'6 (4.20-5.60); RED CELL DISTRIBUTION WIDTH 13.1 % (11.5-14.5); WHITE BLOOD COUNT 6.6 X10'3 (4.5-11.0)
[2019-05-17] MEDS: K and/or MAG REPLACEMENT MC SCH (08:00)
[2019-05-17 08:34] LABS: ALANINE AMINOTRANSFERASE 9 U/L (12-78); ALBUMIN/GLOBULIN RATIO 0.6 (1.1-1.5); ALKALINE PHOSPHATASE 75 IU/L (46-116); ANION GAP 8 (8-16); ASPARTATE AMINO TRANSFERASE 21 U/L (10-37); BILIRUBIN,TOTAL 0.3 MG/DL (0.1-1.0); BLOOD UREA NITROGEN 11 MG/DL (7-18); BUN/CREATININE RATIO 15.3 (6.6-38.0); CALCIUM 8.7 MG/DL (8.5-10.1); CHLORIDE 99 MMOL/L (99-107); CREATININE 0.72 MG/DL (0.40-0.90); GLUCOSE 82 MG/DL (70-104); MAGNESIUM 1.8 MG/DL (1.5-2.4); POTASSIUM 3.8 MMOL/L (3.5-5.1); SODIUM 134 MMOL/L (135-145); TOTAL CARBON DIOXIDE 27.4 MMOL/L (24-32); TOTAL PROTEIN 7.7 G/DL (6.4-8.2); eGFR 78 ML/MIN
[2019-05-17] MEDS: docusate sod 100mg capsule PO SCH (08:49)
[2019-05-17] MEDS: pilocarpine 2% ophthalmic drops 15ml LEFTEYE SCH (08:49)
[2019-05-17] MEDS: traMADol 50MG tablet PO SCH (08:50)
[2019-05-17] MEDS: divalproex sodium 250mg tablet PO SCH (08:50)
[2019-05-17] MEDS: NIFEdipine XL 30mg tablet PO SCH (08:51)
[2019-05-17] MEDS: lisinopril 20mg tablet PO SCH (08:53)
[2019-05-17] MEDS: metoprolol tartrate 25mg tablet PO SCH (08:54)
[2019-05-17] MEDS: heparin, porcine 5000 units/ml vial SQ SCH (08:55)
[2019-05-17] MEDS: normal saline 1000ml 1,000 ML IV SCH (09:13)
[2019-05-17 09:30] VITALS: BP 205/110
[2019-05-17 10:00] VITALS: BP 202/97
--- NOTE | 2019-05-17 10:00 | NUR ---
Doctor aware, medication given will recheck. Addendum: 05/17/19 at 1146 by Liliya Melgoza RN Amended: Links added.
[2019-05-17] MEDS ORDERED: hyDRALAzine 10mg tablet PO PRN (10:50)
[2019-05-17] MEDS ORDERED: amLODIPine 5mg tablet PO SCH (10:50)
[2019-05-17 12:48] VITALS: BP 169/77
--- NOTE | 2019-05-17 12:49 | NUR ---
Hydralazine administered due to BP of 169/ Addendum: 05/17/19 at 1251 by Citlali LEZAMA Amended: Links added.
[2019-05-17 13:50] VITALS: BP 160/84
[2019-05-17] MEDS ORDERED: hyDRALAzine tablet PO (15:59)
[2019-05-17 16:02] VITALS: BP 168/96
--- NOTE | 2019-05-17 17:51 | NUR ---
Patient customer care assistant here to pick her up, iv out and discharge packet provided.
[2019-05-18] MEDS ORDERED: duloxetine 30mg CAPSULE.DR PO SCH (08:00)
== END 2019-05-17 17:51 | disposition home or self-care (01) | DRG 305 ==
LOC: ER 11:38 → ED HOLD 17:13 → ORTHO 4S 19:35
PROVIDERS: ADMIT Internal Medicine; ATTEND Internal Medicine
PROC: BW211ZZ Computerized Tomography (CT Scan) of Abdomen and Pelvis using Low Osmolar Contrast (ICD-10-PCS; principal; 2019-05-16)
DX: I16.0 Hypertensive urgency (principal); I10 Essential (primary) hypertension; F02.80 Dementia in other diseases classified elsewhere, unspecified severity, without behavioral disturbance, psychotic disturbance, mood disturbance, and anxiety; E11.9 Type 2 diabetes mellitus without complications; G30.9 Alzheimer's disease, unspecified; Z66 Do not resuscitate; G89.29 Other chronic pain; M54.9 Dorsalgia, unspecified
CPT/HCPCS: 36415; 70450; 71045; 74177; 80053; 81003; 82140; 82948; 83605; 83735; 85025; 85610; 85730; 87040; 87081; 93005; 96374; 97161; 97530; 99285; G0378; J0696; J1644; J3490; J7030; Q9967